=== PATIENT | female | born 1945 ===

== ENCOUNTER 2017-06-07 06:58 | Day surgery (SDC) | payer MEDICARE ==
[2017-06-07 07:21] VITALS: BMI 26.3
[2017-06-07] MEDS ORDERED: Propofol 10 mg/ml Inj (20 ML) ONE (08:04)
[2017-06-07] MEDS ORDERED: Phenylephrine 10 mg/ml Inj ONE (08:04)
[2017-06-07] MEDS ORDERED: Lactated Ringer's 500 ML IV ONE ×2 (08:06)
[2017-06-07 08:09] VITALS: O2SAT 100
[2017-06-07 08:44] VITALS: TEMP 97.1
[2017-06-07 09:48] VITALS: BP 129/80; PULSE 63; RESP 18
== END 2017-06-07 09:46 | disposition home or self-care (01) ==
LOC: C.ENDO 06:58
PROVIDERS: ATTEND Internal Medicine
DX: K57.90 Diverticulosis of intestine, part unspecified, without perforation or abscess without bleeding (principal); K64.8 Other hemorrhoids
CPT/HCPCS: 45378; J2001; J2370; J2704; J7120